=== PATIENT | male | born 1990 | race Two or more races ===

== ENCOUNTER 2017-05-27 01:39 | Emergency (ER) | payer SELFPAY ==
--- NOTE | 2017-05-27 02:19 | ER Document Report ---
ED Cardiac - General Mode of Arrival: Ambulatory Information source: Patient TRAVEL OUTSIDE OF THE [place] IN LAST 30 DAYS: No - HPI Patient complains to provider of: Chest pain, Shortness of breath Quality of pain: Sharp Chest pain radiation location: Back Cardiac risk factors: Smoker - former Associated symptoms: Other - see notes above Exacerbated by: Deep breaths - General Chief Complaint: Chest Pain Stated Complaint: CHEST PAIN Time Seen by Provider: 05/27/17 01:54 Notes: 26 year old male with no significant medical history presents to the ED complaining of left sided sharp chest pain that started a week after quitting smoking approximately 1 month ago. Patient reports occasional radiation to the right chest and a pressure sensation to the medial aspect of the bilateral shoulder blades. Patient had an episode of sharp chest pain with deep breathing earlier today. [facility]. Patient explains that his pain is exacerbated with inhalation, and relieved when exhalation. Patient additionally complains of not being able to get a deep breath. Patient denies rash, fever, or cough. (PALLAVI TOLLIVER) - Related Data Allergies/Adverse Reactions: ibuprofen Allergy (Severe, Verified 10/08/15 22:08) Anaphylaxis Past Medical History - General Information source: Patient - Social History Smoking Status: Former Smoker Chew tobacco use (# tins/day): No Frequency of alcohol use: None Drug Abuse: None Family History: None, Reviewed & Not Pertinent Pulmonary Medical History: Reports: Hx Bronchitis Psychiatric Medical History: Reports: Hx Depression - Immunizations Hx Diphtheria, Pertussis, Tetanus Vaccination: No Review of Systems - Review of Systems Constitutional: No symptoms reported. denies: Fever EENT: No symptoms reported Cardiovascular: See HPI, Chest pain Respiratory: See HPI, Short of breath - difficulty getting a deep breath. denies: Cough Gastrointestinal: No symptoms reported Genitourinary: No symptoms reported Male Genitourinary: No symptoms reported Musculoskeletal: See HPI, Other - scapular pain, bilaterally Skin: No symptoms reported. denies: Rash Hematologic/Lymphatic: No symptoms reported Neurological/Psychological: No symptoms reported -: Yes All other systems reviewed and negative Physical Exam - Vital signs Vitals: Temp Pulse Resp BP Pulse Ox 98 F 83 18 126/80 H 96 05/27/17 01:49 05/27/17 01:49 05/27/17 01:49 05/27/17 01:49 05/27/17 01:49 - Notes Notes: GENERAL: Alert, interacts well. No acute distress. HEAD: Normocephalic, atraumatic. EYES: Pupils equal, round, and reactive to light. Extraocular movements intact. ENT: Oral mucosa moist, tongue midline. NECK: Full range of motion. Supple. Trachea midline. LUNGS: Clear to auscultation bilaterally, no wheezes, rales, or rhonchi. No respiratory distress. No rubs. HEART: Regular rate and rhythm. No murmurs, gallops, or rubs. ABDOMEN: Soft, non-tender. Non-distended. Bowel sounds present in all 4 quadrants. EXTREMITIES: Moves all 4 extremities spontaneously. No edema, radial pulses 2/4 bilaterally. No cyanosis. NEUROLOGICAL: Alert and oriented x3. Normal speech. PSYCH: Normal affect, normal mood. SKIN: Warm, dry, normal turgor. No rashes or lesions noted. (PALLAVI TOLLIVER) Course - Re-evaluation Re-evalutation: 05/27/17 03:14 Chest x-ray is negative for acute process including pneumonia or pneumothorax as interpreted by me, radiology has not yet read this film. EKG is nonischemic. 05/27/17 03:23 Radiology report just returned, also agrees the chest x-ray is negative for acute process. Patient discharged home. (ERICKSON NICHOLAS) - Vital Signs Vital signs: Temp Pulse Resp BP Pulse Ox 98 F 83 18 126/80 H 96 05/27/17 01:49 05/27/17 01:49 05/27/17 01:49 05/27/17 01:49 05/27/17 01:49 - EKG Interpretation by Me Additional EKG results interpreted by me: 05/27/17 03:15 EKG shows sinus rhythm at a rate of 78, normal axis, normal intervals, no ST segment elevations or depressions, there are isolated T-wave inversions in lead III which are nonspecific per my interpretation. (ERICKSON NICHOLAS) Discharge - Discharge Clinical Impression: Pleuritic chest pain Condition: Stable Disposition: HOME, SELF-CARE Additional Instructions: Pleurisy Your chest pain has been diagnosed as pleuritis (pleurisy). This is an inflammation of the surface of the lung tissue. It can be caused by a virus or , occasionally, old scar tissue. It is painful but, for the most part, not a serious problem. This pain is usually made worse by deep breathing, coughing, or sudden movements of the upper body or arms. The treatment is relief of symptoms. It includes rest, antiinflammatory medication, and pain medicine. Resolution of the pain is usually rapid once antiinflammatory medication is started. Warning signs of a more serious problem include: a fever, shortness of breath, pain that radiates to your jaw, shoulders or arms, or coughing up bloody sputum. If any of these symptoms occur, call the physician at once. Referrals: JENN BILLINGS MD [Primary Care Provider] - Follow up in 3-5 days Scribe Attestation: 05/27/17 03:24 I personally performed the services described in the documentation, reviewed and edited the documentation which was dictated to the scribe in my presence, and it accurately records my words and actions. (ERICKSON NICHOLAS) Scribe Documentation - Scribe Written by Fransisca:: Fransisca Gee, 05/27/2017 0223 acting as scribe for :: Gonsalo
--- NOTE | 2017-05-27 03:21 | RADIOLOGY REPORT (SQ) ---
EXAM DESCRIPTION: CHEST PA/LAT CLINICAL HISTORY: pleuritic chest pain COMPARISON: None. FINDINGS: Frontal and lateral views of the chest. The cardiomediastinal silhouette has normal size and contour. No consolidation, pneumothorax, or pleural effusion. No displaced rib fractures identified. Upper abdominal soft tissues are unremarkable. IMPRESSION: 1. No acute pulmonary process identified.
[2017-05-27 03:38] VITALS: BP 116/78
--- NOTE | 2017-05-29 12:40 | EKG REPORT ---
SEVERITY:- NORMAL ECG - SINUS RHYTHM : Confirmed by: Irish Burger MD 29-May-2017 12:39:20
== END 2017-05-27 03:38 | disposition home or self-care (01) ==
LOC: ER 01:39
DX: R07.81 Pleurodynia (principal); R07.1 Chest pain on breathing; R06.02 Shortness of breath; M89.8X1 Other specified disorders of bone, shoulder; Z87.891 Personal history of nicotine dependence; Z87.892 Personal history of anaphylaxis; Z88.6 Allergy status to analgesic agent
CPT/HCPCS: 71020; 93005; 93010; 99284

== ENCOUNTER 2020-06-10 15:33 | Emergency (ER) | payer OTHER ==
--- NOTE | 2020-06-10 16:10 | ER Document Report ---
ED Medical Screen (RME) - General Chief Complaint: Diarrhea Stated Complaint: DIARRHEA,LOSS OF APPETITE Primary Care Provider: JENN BILLINGS MD [Primary Care Provider] - Follow up as needed TRAVEL OUTSIDE OF THE [place] IN LAST 30 DAYS: No - HPI Notes: 06/10/20 16:04 Rapid Medical Exam HPI: Patient is a 29-year-old male that presents to the ER complaining of diarrhea since yesterday morning. Patient reports having episodes of diarrhea almost every 1-2 hours. Denies black or bloody stools. Small amount of bright red blood on toilet paper. No recent antibiotic use. Was exposed to his brother 3 weeks ago who was just diagnosed with Covid. Denies abdominal pain, chest pain, shortness of breath, cough, fevers, dysuria. No prior abdominal surgeries. Physical Exam: GENERAL: Well-appearing, well-nourished and in no acute distress. HEAD: Atraumatic, normocephalic. ENT: Moist mucous membranes. RESP: Respirations even and unlabored CV- Regular rate. NEURO: No focal neurological deficits. Moves all extremities spontaneously and on command. My involvement in this patients care was limited to a rapid initial assessment. A comprehensive ED assessment and evaluation of the patient, analysis of test results, treatment, and completion of the medical decision making process will be performed by other ER providers. - Related Data Allergies/Adverse Reactions: ibuprofen Allergy (Severe, Verified 10/08/15 22:08) Anaphylaxis Past Medical History Pulmonary Medical History: Reports: Hx Bronchitis Renal/ Medical History: Denies: Hx Peritoneal Dialysis Psychiatric Medical History: Reports: Hx Depression - Immunizations Hx Diphtheria, Pertussis, Tetanus Vaccination: No Physical Exam - Vital signs Vitals: Temp Pulse Resp BP Pulse Ox 98.1 F 93 18 125/78 98 06/10/20 15:37 06/10/20 15:37 06/10/20 15:37 06/10/20 15:37 06/10/20 15:37 Course - Vital Signs Vital signs: Temp Pulse Resp BP Pulse Ox 98.1 F 93 18 125/78 98 06/10/20 15:37 06/10/20 15:37 06/10/20 15:37 06/10/20 15:37 06/10/20 15:37 Doctor's Discharge - Discharge Referrals: JENN BILLINGS MD [Primary Care Provider] - Follow up as needed
[2020-06-10 17:29] LABS: ABSOLUTE EOSINOPHILS # (AUTO) 0.1 10^3/uL (0.0-0.6); ABSOLUTE LYMPHOCYTES (AUTO) 1.3 10^3/uL (0.5-4.7); ABSOLUTE MONOCYTES (AUTO) 0.9 10^3/uL (0.1-1.4); ABSOLUTE NEUT (AUTO) 2.8 10^3/uL (1.7-8.2); BASOPHILS % (AUTO) 0.5 % (0-2); EOSINOPHILS % (AUTO) 1.6 % (0-6); HEMATOCRIT 45.6 % (37.9-51.0); HEMOGLOBIN 15.5 g/dL (13.5-17.0); LYMPHOCYTES % (AUTO) 25.1 % (13-45); MEAN CORPUSCULAR HEMOGLOBIN 30.9 pg (27.0-33.4); MEAN CORPUSCULAR HGB CONC 33.9 g/dL (32.0-36.0); MEAN CORPUSCULAR VOLUME 91 fl (80-97); MONOCYTES % (AUTO) 17.3 % (3-13); PLATELET COUNT 236 10^3/uL (150-450); RED BLOOD COUNT 5.01 10^6/uL (4.35-5.55); RED CELL DISTRIBUTION WIDTH 13.1 % (11.5-14.0); SEGMENTED NEUTROPHILS % (AUTO) 55.5 % (42-78); TOTAL CELLS COUNTED % (AUTO) 100 %
[2020-06-10 17:48] LABS: ALBUMIN 4.2 g/dL (3.5-5.0); ALKALINE PHOSPHATASE 61 U/L (38-126); ANION GAP 5 (5-19); ASPARTATE AMINO TRANSFERASE 67 U/L (17-59); BILIRUBIN,DIRECT 0.1 mg/dL (0.0-0.4); BILIRUBIN,TOTAL 0.4 mg/dL (0.2-1.3); BLOOD UREA NITROGEN 15 mg/dL (7-20); CALCIUM 9.4 mg/dL (8.4-10.2); CARBON DIOXIDE 27 mmol/L (22-30); CHLORIDE 105 mmol/L (98-107); GLUCOSE 109 mg/dL (75-110); POTASSIUM 4.4 mmol/L (3.6-5.0); TOTAL PROTEIN 6.9 g/dL (6.3-8.2)
--- NOTE | 2020-06-10 19:18 | ER Document Report ---
ED General - General Chief Complaint: Diarrhea Stated Complaint: DIARRHEA,LOSS OF APPETITE Time Seen by Provider: 06/10/20 18:18 Primary Care Provider: JENN BILLINGS MD [NO LOCAL MD] - Follow up as needed TRAVEL OUTSIDE OF THE [place] IN LAST 30 DAYS: No - HPI Notes: Patient is a 29-year-old male with no significant past medical history who presents with diarrhea and loss of appetite. Patient states he developed diarrhea yesterday. It is nonbloody. He has had several episodes today. He states he only had some blood in the toilet paper when he wipes because he has been wiping so much. There is no blood in the stool. No nausea or vomiting. No abdominal pain. He has been staying hydrated. He is able to eat. Patient states he visited his brother in [place] 3 weeks ago and he tested positive for Covid. Patient does not have a cough or cold. No chest pain or shortness of breath. Denies eating any new foods. He states people at home do not have similar symptoms. No recent antibiotic use. - Related Data Allergies/Adverse Reactions: ibuprofen Allergy (Severe, Verified 06/10/20 17:32) Anaphylaxis Past Medical History - General Information source: Patient - Social History Smoking Status: Former Smoker Chew tobacco use (# tins/day): No Frequency of alcohol use: Rare Drug Abuse: None Family History: None, Reviewed & Not Pertinent Pulmonary Medical History: Reports: Hx Bronchitis Renal/ Medical History: Denies: Hx Peritoneal Dialysis Psychiatric Medical History: Reports: Hx Depression - Immunizations Hx Diphtheria, Pertussis, Tetanus Vaccination: No Review of Systems - Review of Systems Notes: CONSTITUTIONAL: No fever, fatigue or weight loss. Positive for loss of appetite. SKIN: No rash. HENT: No congestion, ear pain, or sore throat. EYES: No recent vision problems or eye pain. ENDOCRINE: No thyroid problems. No polyuria or polydipsia. CARDIOVASCULAR: No chest pain or edema. RESPIRATORY: No cough, shortness of breath, congestion, or wheezing. GASTROINTESTINAL: No abdominal pain, nausea, vomiting, bloody stools. Positive for nonbloody diarrhea. GENITOURINARY: No dysuria. MUSCULOSKELETAL: No joint pain or swelling. NEUROLOGIC: No seizures. No headache, focal weakness or sensory changes. HEMATOLOGIC: No unusual bruising or bleeding. PSYCHIATRIC: No depression or anxiety. Physical Exam - Vital signs Vitals: Temp Pulse Resp BP Pulse Ox 98.1 F 93 18 125/78 98 06/10/20 15:37 06/10/20 15:37 06/10/20 15:37 06/10/20 15:37 06/10/20 15:37 - General General appearance: Appears well In distress: None Notes: VITAL SIGNS: Within normal limits. GENERAL: No acute distress, non-toxic appearance. HEAD: Normal with no signs of head trauma. EYES: Conjunctiva normal, no discharge. EARS: Hearing grossly intact. NOSE: Normal. NECK: Normal range of motion, no tenderness, supple, no lymphadenopathy, No adenopathy, no JVD. CHEST: Clear breath sounds bilaterally. No wheezes, rales, or rhonchi. CARDIAC: Regular rate and rhythm. S1 and S2, without murmurs, gallops, or rubs. VASCULAR: No Edema. ABDOMEN: Normal and soft with no tenderness, no masses or pulsatile masses. GASTROINTESTINAL: Bowel sounds normal GENITOURINARY: Normal, No tenderness LYMPATHTIC: No lymphadenopathy noted. MUSCULOSKELETAL: Good range of motion of all major joints. Extremities without clubbing, cyanosis or edema. NEUROLOGICAL: Alert and oriented x 3. No focal sensory or strength deficits. Speech normal. Follows commands appropriately. PSYCHIATRIC: Normal Affect, judgement and mood. SKIN: Normal appearance with no rashes or lesions. Course - Re-evaluation Re-evalutation: 06/10/20 19:25 Patient appears well on exam. He is well-hydrated. His abdominal exam is benign. I did offer IV fluids for symptomatic treatment of his diarrhea and he declined. He states he just wanted to make sure his electrolytes were okay and would like to go home. I educated patient on [id number] antidiarrheals. I also told him to stay hydrated and eat light meals until he feels better. He was tested for COVID-19 due to his recent exposure. He will be called with the results. Patient will self isolate until he is called with a negative result. Patient was given strict return precautions. He is very agreeable to this plan. - Vital Signs Vital signs: Temp Pulse Resp BP Pulse Ox 98.1 F 93 18 125/78 98 06/10/20 15:37 06/10/20 15:37 06/10/20 15:37 06/10/20 15:37 06/10/20 15:37 - Laboratory Results Result Diagrams: 06/10/20 17:06 06/10/20 17:06 Laboratory Results Interpreted: 06/10/20 06/10/20 17:06 17:06 [place] % (Auto) 17.3 H AST 67 H Critical Laboratory Results Reviewed: No Critical Results - Radiology Results Critical Radiology Results Reviewed: No Critical Results Discharge - Discharge Clinical Impression: Diarrhea Qualifiers: Diarrhea type: unspecified type Qualified Code(s): R19.7 - Diarrhea, unspecified Condition: Stable Disposition: HOME, SELF-CARE Instructions: COVID-19 Guidance for Persons Under Investigation Additional Instructions: Your work-up today is reassuring. Your electrolytes are normal. Please make sure you continue staying hydrated. Please eat light meals until you feel better. You may take [id number] antidiarrheals. Please return to the ER for any abdominal pain, worsening symptoms, blood in the stool, any other concerning signs. Please follow-up with your family doctor. You have been tested for COVID-19. You must self isolate until you are called with a negative result. Please return to the ER if you have any shortness of breath. Referrals: JENN BILLINGS MD [NO LOCAL MD] - Follow up as needed
[2020-06-10 19:34] VITALS: BP 127/77
== END 2020-06-10 19:34 | disposition home or self-care (01) ==
LOC: ER 15:33
DX: R19.7 Diarrhea, unspecified (principal); R63.0 Anorexia; Z87.892 Personal history of anaphylaxis; Z88.8 Allergy status to other drugs, medicaments and biological substances; Z87.891 Personal history of nicotine dependence; Z20.822 Contact with and (suspected) exposure to COVID-19
CPT/HCPCS: 99283; 36415; 85025; 87635; 80053; C9803